=== PATIENT | male | born 1975 | race Caucasian/White ===

== ENCOUNTER 2025-05-27 22:33 | Emergency (ER) | payer SELFPAY ==
--- OUTSIDE RECORDS SUMMARY | 2023-12-07 11:45 | XMS_ITS ---
Author Organization [facility] vices Address [address] [place] [id number] Care Team Providers Care Newspaper Peddler Name Role Phone Vandana Chen Unavailable [phone] Cecilio Talamantes Unavailable [phone] REASON FOR VISIT HTN & DM Social History Sex Assigned At : Social History Observation Description Sex Assigned At Male Encounters Encounter Location Date Provider Diagnosis Main [address] [place] [id number] 12/07/2023 Cecilio Talamantes Plan Of Treatment No Information Progress Notes * Josh NELSON JR EDOB: [birth year] (49 yo M)Acc No.[id number]:12/07/2023 Medical Note Patient: Aman TAPIA Josh Price Provider: Tashia Talamantes PA-C :1975 A ge:47 Y S ex:Male Date:12/07/2023 Address:[address] , [address], [place], [id number] Subjective: * Chief Complaints: * 1 . HTN & DM. * Medical History: Objective: * Vitals: Assessment: Plan: * Treatment: * Billing Information: * Visit Code: * Procedure Codes: * Electronic signature of KARLO Wilson on 05/27/2025 at 11:15 PM EDT Sign off status: Pending * Provider: Tashia Talamantes PA-C Date: 0 12/07/2023 Generated for Salina valdes/Rody/Еленаsmitting on: 1 11:15 PM EDT
[2025-05-27 22:40] VITALS: BP 150/97; PULSE 92; TEMP 37.3; O2SAT 95; BMI 41.6
--- OUTSIDE RECORDS SUMMARY | 2025-05-27 23:15 | XMS_ITS | Encounter Summary ---
Demographics Address [address] [place] [address] Mobile Phone Email Address Preferred Language Divehi Marital Status Legally Alevism Affiliation Unknown Race White Ethnic Group Not or Lati no Author Organization [facility] Address [facility] [place]-[id number] [address] [place] [address] Care Team Providers Care Saas Architect Name Role Phone Services, [facility] Primary Care Provider Reason for Referral * Consultation (Routine) - Closed Specialty Diagnoses / Procedures Referred By Conttami t Referred To Contact Otolaryngology Diagnoses Nasal septal spur Mucous retention cyst of maxillary sinus Adri Burrell APRN-CNP [address] [place] [address] Phone: tel: fax: Brandan Demarco MD PhD Phone: tel: fax: Referral ID Status Reason Start Date Expiration Date V isits Requested Visits Authorized [id number] Closed Specialty Services Required 05/07/2022 05/07/2023 1 1 Encounter Details Date Type Department Care Team (Late st Contact Info) Description 05/07/2022 Orders Only [facility] [address] [phone] Kailee Champagne RN Nasal septal spur (Primary Dx); Mucous retention cyst of maxillary sinus Social History Tobacco Use Types Packs/Day Years Used Date Smoking Tobacco: Every Day Cigarettes 1 32 Smokeless Tobacco: Never Alcohol Use Standard Drinks/Week Comments Yes 0 (1 standard drink = 0.6 oz pur e alcohol) RARELY AUDIT-C Answer Date Recorded Frequency of Alcohol Consumption Never 05/09/2018 Average Number of Drinks Not on file 018 Frequency of Binge Drinking Not on file 04/17 Childcare Answer Date Recorded Childcare Unknown 01/25/2019 Employment Answer Date Recorded Employment Unknown 01/25/2019 Purpose - Life Answer Date Recorded Purpose and direction in life Unknown Sex and Gender Information Value Date Recorded Sex Assigned at Not on file Legal Sex Male 11:46 AM EDT Gender Identity Not on file Sexual Orientation Not on file COVID-19 Exposure Response Date Recorded In the last month, have you been in contact with someone who was confirmed or suspected to have Coronavirus / COVID-19? No / Unsure 05/04/2022 9:01 AM EDT documented as of this encounter Plan of Treatment Scheduled Referrals Name Type Priority Associated Diagnoses Order Schedule Ambulatory referral to ENT Outpatient Referral Routine Nasal septal spur Mucous retention cyst of maxillary sinus 1 Occurrences starting 05/07/2022 until 05/07/2023 documented as of this encounter Visit Diagnoses Diagnosis Nasal septal spur- Primary Mucous retention cyst of maxillary sinus documented in this encounter Additional Health Concerns Infection Onset Date Last Indicated Resolved Time COVID-19 Rule-Out 01/23/2023 01/23/2023 01/23/2023 9:56 PM EDT documented as of this encounter Care Teams Saas Architect Relationship Specialty Start Date End Date Services, [facility] [address] [place] PCP - General Family Medicine 03/14/25 documented as of this encounter
--- OUTSIDE RECORDS SUMMARY | 2025-05-27 23:15 | XMS_ITS | Encounter Summary ---
Demographics Address [address] [place] [address] Mobile Phone Email Address Preferred Language Malay Marital Status Legally Lutheran Affiliation Unknown Race White Ethnic Group Not or Lati no Author Organization [employer] tem Address [facility] [id number] [address] [place] [address] Care Team Providers Care Line Mover Name Role Phone Services, [facility] Primary Care Provider Encounter Details Date Type Department Care Team (Late st Contact Info) Description 01/05/2023 Telephone [facility] [address] [place] [phone] Dimple Bill Social History Tobacco Use Types Packs/Day Years Used Date Smoking Tobacco: Every Day Cigarettes 1 32 Passive Smoke Exposure: Current Smokeless Tobacco: Never Alcohol Use Standard Drinks/Week Comments Yes 0 (1 standard drink = 0.6 oz pur e alcohol) RARELY AUDIT-C Answer Date Recorded Frequency of Alcohol Consumption Never 05/09/2018 Average Number of Drinks Not on file 018 Frequency of Binge Drinking Not on file 04/17 PHQ-2 Answer Date Recorded Total Score 0 12/30/2022 Childcare Answer Date Recorded Childcare Unknown 01/25/2019 Employment Answer Date Recorded Employment Unknown 01/25/2019 Purpose - Life Answer Date Recorded Purpose and direction in life Unknown Sex and Gender Information Value Date Recorded Sex Assigned at Not on file Legal Sex Male 11:46 AM EDT Gender Identity Not on file Sexual Orientation Not on file documented as of this encounter Miscellaneous Notes * Telephone Encounter - Dimple Bill - 01/05/2023 2:01 PM EDT Patient called into the office today. He was supposed to have sutures removed from a procedure he had done with Dr. Rea, however, they fell out yesterday. His vision OD is still blurry with a film over it. Please advise. Patient wants to know if he should start using drops? He is going in for surgery tomorrow and will be in for 2-3 days. Patient's next appointment is with Dr. Purcell on 01/18/23. Thank you, Dimple Cormier * Telephone Encounter - Alex Rea MD - 01/05/2023 2:01 PM EDT I will add HH to this message so he can answer the patient's question regarding eyedrops. * Telephone Encounter - Thai Purcell MD - 01/05/2023 2:01 PM EDT Yes, Please have the patient restart his eyedrops from before Dr. Hull procedure. Thanks. * Telephone Encounter - Dimple Bill - 01/05/2023 2:01 PM EDT I called the patient and gave Dr. Purcell's message below. Thank you, Dimple Cormier documented in this encounter Plan of Treatment Not on file documented as of this encounter Visit Diagnoses Not on filedocumented in this encounter Additional Health Concerns Infection Onset Date Last Indicated Resolved Time COVID-19 Rule-Out 01/23/2023 01/23/2023 01/23/2023 9:56 PM EDT Assessment Noted Time PHQ-9 Depression Total Score: 0 12/31/19 7:00 AM EDT documented as of this encounter Care Teams Line Mover Relationship Specialty Start Date End Date Services, [facility] [address] [place], [place] PCP - General Family Medicine 03/14/25 documented as of this encounter
--- OUTSIDE RECORDS SUMMARY | 2025-05-27 23:15 | XMS_ITS | Encounter Summary ---
Demographics Address [address] [place] [address] Mobile Phone Email Address Preferred Language Danish Marital Status Legally Adventist Affiliation Unknown Race White Ethnic Group Not or Lati no Author Organization [employer] tem Address [facility] [place]-[id number] [address] [place] [address] Care Team Providers Care Wreath Maker Name Role Phone Services, [facility] Primary Care Provider Encounter Details Date Type Department Care Team ([facility] st Contact Info) Description 07/20/2022 Telephone [facility] [address] [phone] Gifty Rodarte Social History Tobacco Use Types Packs/Day Years [...] have Coronavirus / COVID-19? No / Unsure 06/24/2022 11:09 AM EST documented as of this encounter Miscellaneous Notes * Telephone Encounter - Gifty Rodarte - 07/20/2022 10:13 AM EST SENT CERTIFICATE [facility] MEDICAL NECESSITY TO [facility] Mobibeamally signed by Gifty Rodarte at 07/20/2022 10:14 AM EST documented in this encounter Plan of Treatment Not on file documented as of this encounter Visit Diagnoses Not on filedocumented in this encounter Additional Health Concerns Infection Onset Date Last Indicated Resolved Time COVID-19 Rule-Out 01/23/2023 01/23/2023 01/23/2023 9:56 PM EDT documented as of this encounter Care Teams Wreath Maker Relationship Specialty Start Date End Date [facility], [facility] [address] [place], [place] PCP - General Family Medicine 03/14/25 documented as of this encounter
--- OUTSIDE RECORDS SUMMARY | 2025-05-27 23:15 | XMS_ITS | Clinical Summary ---
Author Organization [facility] Address [address] [place] [address] Care Team Providers Care Sanitary Landfill Operator Name Role Phone Evangelina Reid MD Unavailable Social History Tobacco Use Types Packs/Day Years Used Date Smoking Tobacco: Never Assessed Sex and Gender Information Value Date Recorded Sex Assigned at Not on file Legal Sex Male 7:25 PM EDT Gender Identity Male 10/28/2022 7:25 PM EDT Sexual Orientation Not on file Last Filed Vital Signs Vital Sign Reading Time Taken Comments Blood Pressure 128/80 10/04/2018 12:00 PM EST Pulse - - Temperature - - Respiratory Rate - - Oxygen Saturation - - Inhaled Oxygen Concentration - - Weight 122 kg (268 lb) 10/04/2018 12:00 PM EST Height 165.1 cm (5' 5 ) 10/04/2018 12:00 PM EST Body Mass Index 44.6 10/04/2018 12:00 PM EST Plan of Treatment Not on file Care Teams Sanitary Landfill Operator Relationship Specialty Start Date End Date Evangelina Reid MD [address] [place] [address] PCP - External PCP Family Medicine 01/23/23
--- OUTSIDE RECORDS SUMMARY | 2025-05-27 23:15 | XMS_ITS | Patient Health Record ---
Author Organization [facility] vices Address [address] [place], [place] [phone] Care Team Providers Care Sports Official Name Role Phone Vandana Chen Unavailable [phone] Peter Sarina Unavailable [phone] Allergies No Known Allergies Reason For Referral No Information Medications Medication SIG (Take, Route, Frequency, Duration) Notes Start Date End Date Status Mucinex DM 30-600 MG 1 tablet as needed Orally every 12 hrs; Duration: 10 days 09/21/2023 Active Trulicity 0.75 MG/0.5ML 1 (one) Subcutaneous weekly; Duration: 90 days 4 pens 06/19/2021 Active Azithromycin 250 MG as directed per packet instructions Orally daily; Duration: 5 days 09/21/2023 Active metFORMIN HCl 1000 MG 1 tablet with a meal Orally Once a day; Duration: 30 days Active Glimepiride 2 MG 1 tablet with breakfast or the first main meal of the day Orally Once a day; Duration: 30 days Active Blood Glucose Test Strips 333 - 1 strip In Vitro Twice daily; Duration: 90 days PLEASE PROVIDE STRIPS THAT GO WITH GLUCOMETR COVERED BY THE INSURANCE. THANK YOU 11/25/2022 Active Atorvastatin Calcium 20 MG Take 1 tablet by mouth once daily Orally Once a day; Duration: 30 days Active D-Care Glucometer w/Device daily blood sugar check; Duration: 90 days PLEASE PROVIDE GLUCOMETR KIT TYPE / BRAND COVERED BY THE INSURANCE. THANK YOU 11/25/2022 Active Lancets - 1 Lancet twice daily; Duration: 90 days PLEASE PROVIDE LANCTES THAT GO WITH GLUCOMETR COVERED BY THE INSURANCE. THANK YOU 11/25/2022 Active Lisinopril-hydroCHL OROthiazide 20-12.5 MG 1 tablet Orally Once a day; Duration: 90 days Active Diclofenac Sodium 1 % 4 grams Externally Four times a day; Duration: 10 days 05/08/2022 Not-Taking Social History Tobacco Use: Social History Observation Description Date Details (start date - stop date) Current Smoker 08/16/1986 - NA Sex Assigned At : Social History Observation Description Sex Assigned At Male Household Question Answer Notes Number of adults in household: 2 Number of children in household: 0 Tobacco Use/Smoking Question Answer Notes Tobacco use: current every day smoker When did you start smoking? 08/16/1986 Alcohol Screen (Audit-C) Question Answer Notes Did you have a drink containing alcohol in the p ast year? No Points 0 Interpretation Negative Problems Problem Type SNOMED Code ICD Code Onset Dates Problem Status W/U Status Risk Notes Problem Lower urinary tract symptoms due to benign prostatic hypertrophy (11085298133688) Benign prostatic hyperplasia with lower urinary tract symptoms (N40.1) Inactive confirmed Problem Tobacco user (329439187) Cigarette nicotine dependence without complication (F17.210) Active confirmed Problem Obesity (379267025) Class 2 obesity in adult (E66.9) Active confirmed Description :C lass 2 Obesity in Adult (BMI 35.0-39.9) Problem Depression screening (876734540) Screening for depression (Z13.31) Inactive confirmed Description:D epression screen Problem Hypertension (94664407) Hypertension (I10) Active confirmed Comment:Lisin opril HCTZ 20-12.5 At goal no change needed Patient was advised to limit sodium intake to 1.5g per day, exercising 150 min moderate intensity every week, weight loss of at least 10% of body weight for better control of HTN Medication adherence and required labs were discussed Will order labs as needed to monitor kidney function, Problem Current smoker (64259428) Current smoker (F17.200) Inactive confirmed Problem Esophageal spasm (30710182) Esophageal spasm (K22.4) Active confirmed Problem Screening colonoscopy (559902034) Encounter for screening colonoscopy (Z12.11) Inactive confirmed Story:Normal Colon 2020, Problem Body mass index 40+ - morbidly obese (611513286) BMI 40.0-44.9, adult (Z68.41) Active confirmed Problem Dysphagia (40243282) Dysphagia (R13.10) Inactive confirmed Story:EGD 2020 small hiatal hernia+esopha geal spasm, Problem Obstructive sleep apnea syndrome (42627652) ERASMO (obstructive sleep apnea) (G47.33) Active confirmed Story:needs new sleep study or referral, Problem Human immunodeficiency virus (HIV) screening (684892131) Screening for human immunodeficiency virus without presence of risk factors (Z11.4) Inactive confirmed Description: S creening for HIV without presence of risk factors Problem COPD - Chronic obstructive pulmonary disease (67482345) COPD (chronic obstructive pulmonary disease) (J44.9) Active confirmed Comment:advis ed on smoking cessation,Sto ry:needs new PFT not on inhaler, Problem Type II diabetes mellitus uncontrolled (296300411) Diabetes type 2, uncontrolled (E11.65) Active confirmed -has hypoglycemic episode once per week, advised to take 2 mg GLimepride, if it happens again stop it altogether, Metformin 1000 QD and Trulicity 0.75mg / week-advised to cut back on pop during the day -ordered labs, med refilled, f/u in 3 months Problem Hypertriglyceridem ia (188585322) Hypertriglycerid emia (E78.1) Active confirmed Problem Erectile dysfunction (disorder) (179847386) ED (erectile dysfunction) (N52.9) Active confirmed Encounters Encounter Location Date Provider Diagnosis Main [address] [place], [place] [id number] 06/08/2024 Sarina Green Diabetes type 2, unc ontrolled E11.65 and Hypertriglyceridemia E78.1 Main [address] [id number] 06/16/2024 Sarina Green Main [address] [place], [place] [id number] 06/19/2024 Sarina Green Main [address] [place] [id number] 06/29/2024 Sarina Green Assessments Encounter Date Diagnosis (ICD Code) Assessment Notes Treatment Notes Treatment Clinical Notes Section Notes 06/08/2024 Diabetes type 2, uncontrolled (ICD-10 - E11.65) 06/08/2024 Hypertriglyceridemia (ICD-10 - E78.1) Plan Of Treatment No Information Medical (General) History Medical History History ICD Code Class 2 obesity in adult, BMI 35.0-39.9) COPD (chronic obstructive pulmonary dise ase) Current smoker Diabetes type 2, uncontrolled Dysphagia ERASMO (obstructive sleep apnea) Surgical History Surgery Date(Month/Year) Cholecystectomy Hernia Repair DVT Cancer removed from kidney Hospitalization History Reason Date(Month/Year)
--- OUTSIDE RECORDS SUMMARY | 2025-05-27 23:15 | XMS_ITS | Encounter Summary ---
Demographics Address [address] [place] [address] Mobile Phone Email Address Preferred Language Czech Marital Status Legally Rastafarian Affiliation Unknown Race White Ethnic Group Not or Lati no Author Organization [employer] s tem Address [facility]-[id number] [address] [place] [address] Care Team Providers Care Injection Molding Machine Operator Name Role Phone Services, [facility] Primary Care Provider Encounter Details Date Type Department Care Team (Late st Contact Info) Description 01/04/2023 Orders Only [facility] [address] [address] External, Scanning Provider Social History Tobacco Use Types Packs/Day Years [...] on file documented as of this encounter Plan of Treatment Not on file documented as of this encounter Procedures Procedure Name Priority Date/Time Associated Diagnosis Comments EGD / COLONOSCOPY Routine 07/14/2021 1:32 PM EST documented in this encounter Visit Diagnoses Not on filedocumented in this encounter Additional Health Concerns Infection Onset Date Last Indicated Resolved Time COVID-19 Rule-Out 01/23/2023 01/23/2023 01/23/2023 9:56 PM EDT Assessment Noted Time PHQ-9 Depression Total Score: 0 12/31/19 7:00 AM EDT documented as of this encounter Care Teams Injection Molding Machine Operator Relationship Specialty Start Date End Date Services, [facility] [address] [place], [place] PCP - General Family Medicine 03/14/25 documented as of this encounter
--- OUTSIDE RECORDS SUMMARY | 2025-05-27 23:15 | XMS_ITS | Clinical Summary ---
Demographics Address [address] [place] [address] Mobile Phone Email Address Preferred Language Indonesian Marital Status Legally Protestant Affiliation Unknown Race White Ethnic Group Not or Lati no Author Organization [facility] tem Address [id number] [address] [place] [address] Care Team Providers Care Car Blocker Name Role Phone Services, [facility] Primary Care Provider Allergies No known active allergies Medications budesonide-glyco pyr-formoterol 160-9-4.8 mcg/actuation HFA aerosol inhalerIndicatio ns:Chronic obstructive pulmonary disease, unspecified COPD type ([facility]) Inhale 2 puffs 2 (two) times a day. 10.7 g 3 2 Active TRULICITY 0.75 mg/0.5 mL pen injectorIndicati ons:type 2 diabetes mellitus Indications: type 2 diabetes mellitus. 3 Active predniSONE (DELTASONE) 10 mg tablet 3 tabs for 3 days, 2 tabs for 3 days, 1 tab for 3 days 18 tablet 3 Active cyclobenzaprine (FLEXERIL) 10 mg tablet Take 1 tablet (10 mg total) by mouth 2 (two) times a day as needed for muscle spasms. 10 tablet 4 Active lidocaine (LIDODERM) 5 % Place 1 patch on the skin daily. Remove & Discard patch within 12 hours or as directed by MD 30 patch 4 Active atorvastatin (LIPITOR) 20 mg tablet TAKE 1 TABLET BY MOUTH IN THE MORNING 90 tablet 1 5 Active glimepiride (AMARYL) 2 mg tablet TAKE 1 TABLET BY MOUTH IN THE MORNING BEFORE BREAKFAST 90 tablet 1 5 Active lisinopril-hydro CHLOROthiazide (PRINZIDE,ZESTOR ETIC) 20-12.5 mg per tablet TAKE 1 TABLET BY MOUTH IN THE MORNING 90 tablet 1 5 Active metFORMIN (GLUCOPHAGE) 500 mg tablet TAKE 1 TABLET BY MOUTH IN THE MORNING AND 1 IN THE EVENING WITH MEALS 180 tablet 1 5 Active Active Problems Problem Noted Date Diagnosed Date Hypertension due to endocrine disorder 3 Type 2 diabetes mellitus wit hout complication, without long-term current use of insulin 01/24/2023 Acute exacerbation of chroni c obstructive pulmonary disease (COPD) 01/23/2023 ERASMO (obstructive sleep apnea) 11/11/2022 Overview (11/11/2022): Added automatically from request for surgery [id number] Deviated nasal septum 11/11/2022 Overview (11/11/2022): Added automatically from request for surgery [id number] Dysphagia 11/11/2022 Overview (11/11/2022): Added automatically from request for surgery [id number] Tonsillar hypertrophy 11/11/2022 Overview (11/11/2022): Added automatically from request for surgery [id number] Hypertrophy of lingual tonsil 11/11/2022 Overview (11/11/2022): Added automatically from request for surgery [id number] Elongated uvula, acquired 11/11/2022 Overview (11/11/2022): Added automatically from request for surgery [id number] Encounters Date Type Department Care Team Description 04/10/2025 Refill [facility] [address] [place] [address] [address] [phone] Xioa Cordero APRN-CNP 04/08/2025 Refill [facility] [address] [place] [address] [address] [address] Xiao Cordero APRN-TROY 03/14/2025 7:41 AM EDT - 03/14/2025 9:13 AM EDT Emergency [facility] [address] [place] [phone] Katy Barriga MD Cellulitis of right thigh (Primary Dx); Hyperglycemia Discharge Disposition: Home 03/14/2025 Travel from Last 3 Months Family History * Patient is adopted Medical History Relation Name Comments Anesthesia problems Neg Hx Relation Name Status Comments Father adopted Alive Mother adopted Alive Social History Tobacco Use Types Packs/Day Years Used Date Smoking Tobacco: Every Day Cigarettes 1 32 Passive Smoke Exposure: Current Smokeless Tobacco: Never Tobacco Cessation:Ready to Q uit: Not Asked; Counseling Given: Not Answered Alcohol Use Standard Drinks/Week Comments Yes 0 [...] Employment Answer Date Recorded Employment Unknown 01/25/2019 Hunger Screening Answer Date Recorded Within the past 12 months we worried whether our food would run out before we got money to buy more. Never True 03/14/2025 Within the past 12 months th e food we bought just didn't last and we didn't have money to get more. Never True 03/14/2025 Purpose - Life Answer Date Recorded Purpose and direction in life Unknown Sex and Gender Information Value Date Recorded Sex Assigned at Not on file Legal Sex Male 11:46 AM EDT Gender Identity Not on file Sexual Orientation Not on file Last Filed Vital Signs Vital Sign Reading Time Taken Comments Blood Pressure 132/89 03/14/2025 9:13 AM EDT Pulse 93 03/14/2025 9:13 AM EDT Temperature 36.8 C (98.2 F) 03/14/2025 7:48 AM EDT Respiratory Rate 20 03/14/2025 9:13 AM EDT Oxygen Saturation 93% 03/14/2025 9:13 AM EDT Inhaled Oxygen Concentration - - Weight 108.9 kg (240 lb) 03/14/2025 7:48 AM EDT Height 165.1 cm (5' 5 ) 03/14/2025 7:48 AM EDT Body Mass Index 39.94 03/14/2025 7:48 AM EDT Plan of Treatment Health Maintenance Due Date Last Done Comments Diabetic Ophthalmology Exam 1973 Tobacco Counseling 1973 Adult BMI Follow Up Plan 01/01/1992 Diabetic Foot Exam 01/01/1992 DTaP,Tdap and Td Vaccines (1 - Tdap) 1992 Depression Screening 2023 12/30/2022 Zoster (Shingles) Vaccine (1 of 2) 01/01/2024 Influenza Vaccine 04/16/2025 Statin Use: Diabetic 01/08/2026 01/08/2025 Adult BMI Screening 03/14/2026 03/14/2025 Tobacco Screening 03/14/2026 03/14/2025 Medical Devices Not on file Procedures Procedure Name Priority Date/Time Associated Diagnosis Comments BEDSIDE GLUCOSE Routine 03/14/2025 8:16 AM EDT from Last 3 Months Results * (ABNORMAL) Bedside Glucose *Place/Obtain serum glucose if >500 per glucometer. (03/14/2025 8:16 AM EDT) Bedside Glucose (POC) 471(HH) 65 - 99 mg/dL 03/14/2025 8:17 AM EDT [facility] arterial/capilla ry 03/14/2025 8:16 AM EDT 03/14/2025 8:17 AM EDT us Katy Barriga MD POINT OF CARE TEST ORDERABLES Fi nal Result [facility] [address] [facility] [place] [address], [place] from Last 3 Months Advance Directives * Full Code (Latest Code Status on File) Date Activated Date Inactivated Comments 01/24/2023 12:48 AM 01/24/2023 2:04 PM Care Teams Car Blocker Relationship Specialty Start Date End Date Services, [facility] [address] [place], [place] PCP - General Family Medicine 03/14/25
--- NOTE | 2025-05-27 23:19 | ED_ITS ---
HPI - Skin/Abscess/Foreign Bdy General Chief complaint: Skin/Abscess/Foreign Body Stated complaint: ABCESS INSIDE HIS LEG Time Seen by Provider: 05/27/25 22:58 Source: patient Mode of arrival: walk-in History of Present Illness HPI narrative: This 49-year-old male who is diabetic presents for evaluation of 3 small pustules at the left inguinal area. The patient states that he recently had a similar area on his right abdominal wall. He went to [facility] and was given doxycycline antibiotics and it cleared up. He states they told him that the reason that he had the condition on his skin was because he is fat and sweats a lot. I suspect he may have been told that he had folliculitis but he does not recall hearing that word. He does shave or cut his pubic hair very close. In the left inguinal area that starting today he had an eruption of 3 small pustules. He does not have any sign of any necrotizing fasciitis. He has not had any fever. This does not expand down into his inguinal area. He has no abdominal pain. He has no nausea or vomiting. He denies any body aches. Related Data Allergies Allergy/AdvReac Type Severity Reaction Status Date / Time No Known Drug Allergies Allergy Verified 05/27/25 22:40 Review of Systems ROS Status of ROS 10 or more systems reviewed and unremark able except as noted in history and below PFSH PFSH Social History Little interest or pleasure in doing things: not at all Feeling down, depressed, or hopeless: not at all Exam Narrative Exam Narrative: Vital signs and Nursing Notes reviewed: Afebrile with normal pulse, blood pressure is elevated 150/97, he is not hypoxic with pulse ox of 95% on room air General: Awake, alert, oriented, overweight adult male no acute distress, lying comfortably on the stretcher-easily about the stretcher HEENT: Normocephalic atraumatic, mucous membranes are moist and pink, eyes are clear, normal conjunctiva, vision is grossly intact Chest: Lungs are clear to auscultation with good air entry, there is no wheezing rhonchi or rales appreciated no accessory muscle use, patient is speaking in complete sentences-no chest wall tenderness to palpation CVS: Regular rate and rhythm S1-S2, no murmurs rubs or gallops, pulses are brisk and equal bilaterally ABD: Obese, soft, nondistended, nontender, no rebound guarding or rigidity, bowel sounds are normal, no pulsatile masses appreciated-there were 3 small pustules at the left upper mons pubis area, one of them was softly fluctuant and opened up and cultured. There is no local cellulitis but there is mild local erythema and induration. There is no extension of this into the lower perineal area. This does not involve his scrotum or rectal area. Extremities: Moving all extremities, no lower extremity tenderness or swelling noted, negative Homans' sign, pulses are brisk and equal bilaterally Skin: Normal in appearance without rash,pallor, petechiae or purpura Neuro: No focal deficits Constitutional Vital Signs, click to edit/add: Last Vital Signs Temp 99.2 F 05/27/25 22:40 Pulse 92 H 05/27/25 22:40 Resp 18 05/27/25 22:40 BP 150/97 H 05/27/25 22:40 Pulse Ox 95 05/27/25 22:40 O2 Del Method Room Air 05/27/25 22:40 Course Vital Signs Vital signs: Vital Signs Temperature 99.2 F 05/27/25 22:40 Pulse Rate 92 H 05/27/25 22:40 Respiratory Rate 18 05/27/25 22:40 Blood Pressure 150/97 H 05/27/25 22:40 Pulse Oximetry 95 05/27/25 22:40 Oxygen Delivery Method Room Air 05/27/25 22:40 Temperature 99.2 F 05/27/25 22:40 Pulse Rate 92 H 05/27/25 22:40 Respiratory Rate 18 05/27/25 22:40 Blood Pressure 150/97 H 05/27/25 22:40 Pulse Oximetry 95 05/27/25 22:40 Oxygen Delivery Method Room Air 05/27/25 22:40 MDM - Skin/Abscess/Foreign Bdy MDM Narrative Medical decision making narrative: This 49-year-old male with a history of diabetes presents for evaluation of 3 small pustules in the left lower abdominal/mons pubis area. He does shave his pubic hair very close to his skin and was recently told that he had an infection in his abdominal wall from being fat and sweating a lot, I suspect this is related to a folliculitis but the patient does not recall hearing that. He states that he took antibiotics when he had that infection and it cleared up but today he developed 3 small pustules in the mons pubis area for which he presents today. He does not have any fever. There is no extension onto his lower inguinal area or perineum with any concern for necrotizing fasciitis. I did open up one of the small pustules that was softly fluctuant and cultured the purulent material that was expressed. He was given a dose of oral clindamycin due to a concern for MRSA pending cultures. He will be discharged home with a 10-day course of clindamycin with recommendation for close follow-up with his family physician and warm compresses/baths to help these pustules opened up and resolved. I also discussed the extensive shaving that he does in his perineal area with him as this may be a contributing factor to developing cellulitis/folliculitis or other inguinal area infections. Discharge Plan Discharge Chief Complaint: Skin/Abscess/Foreign Body Clinical Impression: Abscess of skin or subcutaneous tissue Patient Disposition: Home, Self-Care Time of Disposition Decision: 23:17 Condition: Good Print Language: Uzbek Instructions: Abscess (ED) Referrals: Physician,Non-Staff, [Primary Care Provider] - 1 week
[2025-05-27] MEDS: CLINDAMYCIN HCL 150 MG CAPSULE 300 MG PO (23:26)
== END 2025-05-27 23:31 | disposition home or self-care (01) ==
PROVIDERS: Emergency Provider Emergency Medicine
DX: L02.214 Cutaneous abscess of groin (principal); E11.9 Type 2 diabetes mellitus without complications
CPT/HCPCS: 87070; 87075; 87077; 87186; 99283